=== PATIENT | female | born 1940 | race Caucasian/White ===

== ENCOUNTER 2025-01-23 14:29 | Inpatient (IN) | payer BC, MEDICARE ==
[~2025-01-23] VITALS: Ht 165.1 cm; Wt 39.0 kg
[2025-01-23 15:02] LABS: BASOPHILS % (AUTO) 0.2 % (0-1); EOSINOPHILS # (AUTO) 0.1 X10'3 (0-0.9); EOSINOPHILS % (AUTO) 2.3 % (0-6); HEMATOCRIT 33.6 % (35.0-45.0); HEMOGLOBIN 11.3 g/dl (12.0-16.0); LYMPHOCYTES # (AUTO) 1.6 X10'3 (1.1-4.8); LYMPHOCYTES % (AUTO) 40.2 % (21-51); MEAN CORPUSCULAR HEMOGLOBIN 31.2 PG (27.0-31.0); MEAN CORPUSCULAR HGB CONC 33.6 g/dL (33.0-36.5); MEAN CORPUSCULAR VOLUME 92.8 FL (78-98); MEAN PLATELET VOLUME 7.3 FL (7.4-10.4); MONOCYTES # (AUTO) 0.6 X10'3 (0-0.9); MONOCYTES % (AUTO) 14.4 % (2-12); NEUTROPHILS # (AUTO) 1.7 X10'3 (1.8-7.7); NEUTROPHILS % (AUTO) 42.9 % (42-75); PLATELET COUNT 299 X10'3 (140-440); RED BLOOD COUNT 3.62 X10'6 (4.20-5.60); RED CELL DISTRIBUTION WIDTH 12.4 % (11.5-14.5); WHITE BLOOD COUNT 3.9 X10'3 (4.5-11.0)
[2025-01-23 15:56] LABS: ALANINE AMINOTRANSFERASE 20 U/L (12-78); ALBUMIN 3.7 G/DL (3.4-5.0); ALKALINE PHOSPHATASE 33 IU/L (46-116); ANION GAP 10 (8-16); ASPARTATE AMINO TRANSFERASE 23 U/L (10-37); BILIRUBIN,TOTAL 0.9 MG/DL (0.1-1.0); BLOOD UREA NITROGEN 29 MG/DL (7-18); BUN/CREATININE RATIO 41.4 (10.0-20.0); CALCIUM 8.8 MG/DL (8.5-10.1); CHLORIDE 99 MMOL/L (99-107); GLUCOSE 89 MG/DL (70-104); LIPASE 11 U/L (16-77); POTASSIUM 4.5 MMOL/L (3.5-5.1); SODIUM 136 MMOL/L (135-145); TOTAL CARBON DIOXIDE 27.1 MMOL/L (24-32); TOTAL PROTEIN 7.4 G/DL (6.4-8.2); eCRCL 37 ML/MIN; eGFR 80 ML/MIN
--- NOTE | 2025-01-23 17:47 | Physician Documentation ---
History of Present Illness Chief Complaint: Abdominal Pain w/vomiting Stated Complaint: N/V Time Seen by MD: 17:37 Source: patient, family Mode of Arrival: POV HPI 85-year-old female history of COPD, remote history of bowel obstruction status post resection presenting with nausea vomiting diarrhea. She initially had diarrhea on Tuesday night she took Imodium and Tuesday her diarrhea improved but then she developed vomiting. She has been unable to hold down any food since then complaining of abdominal pain still Medication Reconciliation Allergies: Coded Allergies: No Known Allergies (Unverified , 01/23/25) Past Medical History Smoking Status: Current every day smoker Review of Systems All Other Systems at this time: Reviewed and Negative Constitutional: Denies: fever Physical Exam Vital Signs: Temperature: 97.6, Source: Axillary, Heart Rate: 91, Respiratory Rate: 16, BP: 141/79, Pulse Oximetry: 98, Weight: 39.000 Oxygen Flow Rate: 0 Physical Exam Uncomfortable appearing deconditioned Abdomen left lower quadrant tenderness no guarding no rebound Pulmonary clear to auscultation Neuro awake alert oriented Skin pink warm dry no rash decreased turgor Progress Results/Orders Reviewed/noted all lab results: Yes Results/Orders Orders - MARVIN TODD MD Urinalysis, Cult If Indicated (01/23/25 14:42) Hcg, Ur Ql (01/23/25 14:42) Ct Abdomen Pelvis (01/23/25 17:37) Completed Orders - MARVIN TODD MD Cbc/Diff (01/23/25 14:42) Vital Signs 01/23/25 01/23/25 14:37 14:49 Temp 97.6 Pulse 91 Resp 16 16 B/P (MAP) 141/79 Pulse Ox 98 O2 Flow Rate 0 Laboratory Tests Test 01/23/25 14:49 01/23/25 15:22 White Blood Count 3.9 L Red Blood Count 3.62 L Hemoglobin 11.3 L Hematocrit 33.6 L Mean Corpuscular Volume 92.8 Mean Corpuscular Hemoglobin 31.2 H Mean Corpuscular Hemoglobin Concent 33.6 Red Cell Distribution Width 12.4 Platelet Count 299 Mean Platelet Volume 7.3 L Neutrophils (%) (Auto) 42.9 Lymphocytes (%) (Auto) 40.2 Monocytes (%) (Auto) 14.4 H Eosinophils (%) (Auto) 2.3 Basophils (%) (Auto) 0.2 Neutrophils # (Auto) 1.7 L Lymphocytes # (Auto) 1.6 Monocytes # (Auto) 0.6 Eosinophils # (Auto) 0.1 Basophils # (Auto) 0.0 CBC Comment Chemistry Comments Sodium Level 136 Potassium Level 4.5 Chloride Level 99 Carbon Dioxide Level 27.1 Anion Gap 10 Blood Urea Nitrogen 29 H Creatinine 0.70 Estimated GFR/1.73 m2 80 BUN/Creatinine Ratio 41.4 H Glucose Level 89 Calcium Level 8.8 Total Bilirubin 0.9 Aspartate Amino Transf (AST/SGOT) 23 Alanine Aminotransferase (ALT/SGPT) 20 Alkaline Phosphatase 33 L Total Protein 7.4 Albumin 3.7 Globulin 3.7 Albumin/Globulin Ratio 1.0 L Lipase 11 L Medical Decision Making Additional Comments Bowel obstruction, volvulus, ischemic colitis Departure Impression: Primary Impression: Abdominal pain Qualified Codes: R10.32 - Left lower quadrant pain Additional Impression Text Signed out to night physician several days of diarrhea nausea vomiting abdominal pain follow up labs CT imaging Jahaira Lagunas MD: Assumed care of patient from Dr. Todd. Patient in with abdominal pain and vomiting. Previous history of obstruction and resection that is remote. Denies any other surgeries in her abdomen. CT scan shows small bowel obstruction. Patient was given pain medication along with Zofran in the ED. NG tube placed. Patient is stable on admission to the hospitalist team. Referrals: NO PRIMARY CARE PROVIDER (PCP) Signature Scribe Signature: No scribe Attestation: No scribe MARVIN TODD MD Jan 23, 2025 17:47 JAHAIRA LAGUNAS MD Jan 23, 2025 20:51
[2025-01-23] MEDS: ringers solution, lacted 1,000 ML IV ONE (18:01)
[2025-01-23] MEDS ORDERED: iohexol 300mg/ml 100ml inj. ONE (18:03)
[2025-01-23] MEDS: morphine 4 MG/ML inj SYRINge IV ONE (18:04)
--- NOTE | 2025-01-23 18:48 | RADIOLOGY REPORT ---
Exam: CT CT ABDOMEN PELVIS W/ IV CONTRAST History: abdominal pain COMPARISON: None Technique: Multidetector spiral CT of the abdomen and pelvis was performed from lung bases to pubic s ymphysis. Intravenous contrast was administered during this examination. Portal venous imaging was obtained. Axial, coronal and sagittal multiplanar reformats were performed by the technologist on a separate workstation. Radiation Dose : 1. Abdomen/Pelvis: CTDIvol 5.3 mGy, DLP 263 mGy*cm. CONTRAST: Type of contrast: Isovue Contrast injected: 100 ml Findings: Lung Bases: No acute or significant lung base finding. Normal heart size. No pleural or pericardial effusion. Liver: The liver is normal in size. No focal lesions. Normal hepatic vascular enhancement. Gallbladder and Biliary Tree: Unremarkable Spleen: Unremarkable Pancreas: The pancreas is normal in appearance without focal lesions or abnormal enhancement. Adrenal Glands: Unremarkable Kidneys: No hydronephrosis. Bladder: Markedly distended bladder Bowel: The stomach is grossly normal in appearance. Multiple abnormally dilated loops of small bowel are seen with probable transition point in the lower midline abdomen compatible with small-bowel obst ruction. The appendix is not visualized; however, no secondary findings of acute appendicitis identi fied. Ascites: Absent Lymphadenopathy: No mesenteric, retroperitoneal or periportal lymphadenopathy. Abdominal Wall and Mesentery: Unremarkable. Vasculature: The visualized abdominal aorta is normal in size and caliber. Abdominal and pelvic vess els demonstrate normal enhancement. Pelvic Organs: Unremarkable Musculoskeletal: No aggressive focal bony lesions, acute fractures or dislocation. Chronic compressio n deformity of the L1 vertebral body IMPRESSION: 1. Small-bowel obstruction with probable transition point in the lower midline abdomen. 2. Markedly distended bladder. Correlate for urinary retention Radiation optimization: All CT scans at this facility use at least one of these dose optimization bobo hniques: automated exposure control mA and/or kV adjustment per patient size (includes targeted exam s where dose is matched to clinical indication) or iterative reconstruction.
[2025-01-23] MEDS: ondansetron/PF 4mg/2ml inj IV ONE (19:25)
[2025-01-23] MEDS ORDERED: magnesium Cl slow-release 64mg tablet PO PRN (20:00)
[2025-01-23] MEDS ORDERED: magnesium sulf-water 4G/100mL 100 ML IV PRN (20:00)
[2025-01-23] MEDS ORDERED: HYDROmorphone inj. 0.5 MG/0.5 ML DISP.SYRIN IV PRN (20:00)
[2025-01-23] MEDS ORDERED: magnesium sulf-water 2g/50mL 50 ML IV PRN (20:00)
[2025-01-23] MEDS ORDERED: potassium Cl 20 mEq SR tablet PO PRN ×2 (20:00)
[2025-01-23] MEDS ORDERED: ondansetron/PF 4mg/2ml inj IV PRN (20:00)
[2025-01-23] MEDS: docusate sod 100mg capsule PO SCH (20:00)
[2025-01-23] MEDS ORDERED: acetaminophen 325mg tablet PO PRN (20:00)
[2025-01-23] MEDS ORDERED: mag hydrox/Alum hydrox/simeth 30ml oral suspension PO PRN (20:00)
[2025-01-23] MEDS: K and/or MAG REPLACEMENT MC SCH (20:00)
[2025-01-23] MEDS ORDERED: potassium Cl 40MEQ/1/2NS 520ml 520 ML IV PRN (20:00)
--- NOTE | 2025-01-23 20:07 | HISTORY AND PHYSICAL-Residence ---
History & Physical Providers to CC Resident Creating Document: WES CORREA RES ~ History of Present Illness Primary Medical Doctor: None Reason for Admit\Complaint: Nausea, vomiting, pain abdomen History of Present Illness 85-year-old female(very poor historian) with past medical history of COPD, hard hearing, remote history of bowel obstruction status post resection presented to the ER with abdominal pain, vomiting. She endorses that pain abdomen, 6-7/10, in lower abdomen, spasmodic for the past four days. She initially had multiple episodes of diarrhea on Tuesday night and she took Imodium. On Tuesday her diarrhea improved but then she developed vomiting for the past four days. She reports nausea, multiple episodes of vomiting, with a light green liquid, more than 8-10 episodes& without any hematemesis for the past four days. She has been unable to hold down any food since then she developed abdominal pain. She do reports back pain and shoulder pain and chest pain, non anginal, burning type retrosternal for the past 2 days. Denied shortness of breath, wheezing, palpitations, fever, cough, constipation, abdominal distention, pedal edema. Her last bowel movement is on 01/23/2025. Her next in kin is KajalBárbara Discussed code status with the patient and patient wants to be in full code. Allergies: Coded Allergies: No Known Allergies (Unverified , 01/23/25) Past Medical History Past Medical History COPD Past Surgical History Surgical History Comment Hysterectomy Family History Family History: Patient reports no known family medical history. Past Social History Social History Comment Smoking less than half a pack of cigarettes for 10 years She denied alcohol and drug intake Smoking: Cigarettes, Less than 1 pack/day Alcohol Use: None Drug Use: None Occupation: retired ROS All Other Systems: Reviewed and Negative ROS Reviewed in full and negative except positive pertinent in HPI Constitutional: Denies: fever Exam Vitals: Vital Signs Date Time Temp Pulse Resp B/P (MAP) Pulse Ox O2 Delivery O2 Flow Rate FiO2 01/23/25 18:04 16 01/23/25 14:37 97.6 91 141/79 98 0 General: General: Elderly female, alert and oriented x4, not in acute distress. Deconditioned, uncomfortable appearance. Head: Normocephalic with an atraumatic Eyes: Pupils- 3mm, reacting to light, conjunctiva- anicteric Nose and throat: No polyps, septum- normal, no mucosal ulcers Neck: Supple, no lymphadenopathy, no carotid bruit Respiratory: No use of accessory muscles of respiration, Bilateral normal vesiscular breath sounds heard. No wheeze, rhochi or creps Cardiovascular system: S1-S2 heard, rhythm regular, no gallop/murmur Gastrointestinal: Soft over the right side of abdomen. Firm in consistency over the left upper and lower quadrants. non distended, tenderness in the left lower quadrant, no organomegaly, bowel sounds - heard hyper active. No guarding, rigidity Extremities: no clubbing, no pedal edema, no deformities, peripheral pulses - 2+. Skin: warm and dry, no rash, no purpura,decreased turgor Neuro: No focal deficit, gross cranial nerve exam - normal Diagnostic Data Last Recorded Lab Results: 01/24/25 04401/24/25 044 Advance Care Planning Advanced Care planning: Add on additional 30 min Additional Plan Assessment and plan Small-bowel obstruction likely secondary to postop adhesions Vitals are stable Hemoglobin is 11.3, hematocrit is 36.6. Procalcitonin is elevated WBCs at 3.9, reduced and lactic acid is normal Elevated BUN, seems to be in dehydration Received 1 L of lactate in ER and we put the patient on 100 mL/hour normal saline. On ondansetron, metoclopramide p.r.n. for vomiting On pantoprazole 40 mg IV daily We are giving the Dilaudid for abdomen pain. Started on ceftriaxone and metronidazole. NG tube is placed and with light green vomitus Consulted Dr. Romero & we will appreciate the recommendation Acute urinary retention Bladder scan showed 600 mL Straight catheterization is ordered and more than 600 mL of the urine is drained We will monitor for urine output If not resolved we may consult the urologist. Mild normocytic normochromic anemia Continue to monitor H&H daily Code status: Full code DVT prophylaxis: SCDs Diet: NPO PT: Ordered Prognosis: Guarded Wes DOBBINS resident Date of Service: Jan 23, 2025 Billing Provider: LILY STEVEN MD Common Visit Codes: 09666-[id number] INP/OBS CARE (HIGH) Assessment/Plan Assessment Evaluated the patient with the help of residents. Discussed the case with them. Reviewed notes by Dr.Suragani GUTIERREZ. agree with his assessments and plans. I also reviewed the patient's records which included labs, radiology, notes from other providers. No additional points at this time WES CORREA, KESHAV Jan 23, 2025 20:07 LILY STEVEN MD Jan 24, 2025 11:29
[2025-01-23] MEDS ORDERED: metoclopramide 5 mg/ml inj IV PRN (20:10)
[2025-01-23] MEDS: HYDROmorphone/PF 0.2 MG/ML SYRINGE IV PRN (20:23)
[2025-01-23] MEDS: pantoprazole 40 MG vial IV SCH (20:31)
[2025-01-23] MEDS: normal saline 1000ml 1,000 ML IV SCH (20:31)
[2025-01-23 20:42] LABS: APTT 26 SECONDS (22-32); PROTHROMBIN TIME 10.3 SECONDS (9.0-12.0)
--- NOTE | 2025-01-23 21:14 | RADIOLOGY REPORT ---
EXAM: DI CHEST,SINGLE VIEW CLINICAL HISTORY: small bowel obstruction TECHNIQUE: Single AP view of the chest WID: COMPARISON: CT abdomen pelvis from same day FINDINGS: Lines and tubes: None Chest: The heart size and pulmonary vasculature is within normal limits. Calcified plaque projects over the aortic arch. No pleural effusion or pneumothorax. There is mixed right basilar opacity. The osseous structures are grossly intact. IMPRESSION: Small mixed right basilar opacity which could reflect atelectasis, scarring, or atypical infection.
[2025-01-24] VITALS (8 sets, daily range): BP systolic 76–117; BP diastolic 41–49; PULSE 72–105; RESP 15–24; TEMP 97–99.4; O2SAT 95–98
[2025-01-24 02:06] LABS: URINE HCG NEGATIVE (NEG)
[2025-01-24 02:07] LABS: BILIRUBIN,URINE NEGATIVE (Neg); CLARITY,URINE SLIGHTLY CLOUDY (Clear); COLOR,URINE YELLOW (Yellow); GLUCOSE, URINE NEGATIVE (Neg); KETONES,URINE 15 mg/dl (Neg); LEUKOCYTE ESTERASE ,URINE NEGATIVE (Neg); NITRITES, URINE NEGATIVE (Neg); OCCULT BLOOD,URINE NEGATIVE (Neg); PROTEIN,URINE NEGATIVE (Neg); UROBILINOGEN,URINE 0.2 E.U/dL (0.2-1.0)
[2025-01-24 02:10] LABS: UA COLLECTION TYPE STRAIGHT CATH
[2025-01-24 02:12] LABS: HYALINE CASTS 0-3 /LPF (NEGATIVE); MUCUS STRANDS FEW /LPF (Neg); SQUAMOUS EPITHELIAL CELL,UR NONE SEEN /LPF (FEW)
[2025-01-24 02:13] LABS: RBC,URINE 0-2 /HPF (0-2); WBC,URINE 0-4 /HPF (0-4)
[2025-01-24 02:14] LABS: AMORPHOUS URATES 1+; BACTERIA,URINE 1+ /HPF (Neg)
[2025-01-24] MEDS: metroNIDAZOLE-Flagyl 500mg/NS 100 ML IV SCH (03:09)
[2025-01-24] MEDS: CefTRIAXone/D5W-Rocephin 1gm 50 ML IV SCH (04:22)
[2025-01-24 04:50] LABS: BASOPHILS % (AUTO) 0.3 % (0-1); EOSINOPHILS # (AUTO) 0.1 X10'3 (0-0.9); EOSINOPHILS % (AUTO) 2.2 % (0-6); HEMATOCRIT 31.5 % (35.0-45.0); HEMOGLOBIN 10.6 g/dl (12.0-16.0); LYMPHOCYTES # (AUTO) 1.3 X10'3 (1.1-4.8); LYMPHOCYTES % (AUTO) 30.2 % (21-51); MEAN CORPUSCULAR HEMOGLOBIN 31.3 PG (27.0-31.0); MEAN CORPUSCULAR HGB CONC 33.6 g/dL (33.0-36.5); MEAN CORPUSCULAR VOLUME 93.3 FL (78-98); MEAN PLATELET VOLUME 6.4 FL (7.4-10.4); MONOCYTES # (AUTO) 0.6 X10'3 (0-0.9); MONOCYTES % (AUTO) 14.1 % (2-12); NEUTROPHILS # (AUTO) 2.3 X10'3 (1.8-7.7); NEUTROPHILS % (AUTO) 53.2 % (42-75); PLATELET COUNT 255 X10'3 (140-440); RED BLOOD COUNT 3.37 X10'6 (4.20-5.60); RED CELL DISTRIBUTION WIDTH 12.3 % (11.5-14.5); WHITE BLOOD COUNT 4.3 X10'3 (4.5-11.0)
[2025-01-24 05:10] LABS: ALANINE AMINOTRANSFERASE 20 U/L (12-78); ALBUMIN 3.1 G/DL (3.4-5.0); ALKALINE PHOSPHATASE 29 IU/L (46-116); ANION GAP 10 (8-16); ASPARTATE AMINO TRANSFERASE 23 U/L (10-37); BILIRUBIN,TOTAL 0.7 MG/DL (0.1-1.0); BLOOD UREA NITROGEN 20 MG/DL (7-18); BUN/CREATININE RATIO 32.3 (10.0-20.0); CALCIUM 8.5 MG/DL (8.5-10.1); CHLORIDE 104 MMOL/L (99-107); CREATININE 0.62 MG/DL (0.40-0.90); GLUCOSE 80 MG/DL (70-104); MAGNESIUM 1.6 MG/DL (1.5-2.4); POTASSIUM 4.8 MMOL/L (3.5-5.1); SODIUM 140 MMOL/L (135-145); TOTAL CARBON DIOXIDE 25.8 MMOL/L (24-32); TOTAL PROTEIN 6.3 G/DL (6.4-8.2); eCRCL 42 ML/MIN; eGFR > 90 ML/MIN
[2025-01-24] MEDS: normal saline 500ml IV soln 500 ML IV STA (09:59)
--- NOTE | 2025-01-24 18:31 | CARDIOLOGY REPORT ---
APPROVED REPORT EXAM: Limited 2D, Doppler, and color-flow Echocardiogram. Patient Location: [facility] Blood Pressure: 117/49 mmHg Heart Rate: 86 bpm Indications Pre-OP Assessment COPD NO [employer] NO Previous ECHO 2D Dimensions LA Diam2.2 cm IVSd 0.8 (0.7-1.1cm) LVDd 3.3 cm PWd 0.8 (0.7-1.1cm) IVSs 1.3 (0.8-1.2cm) LVDs 2.1 (2.5-4.0cm) PWs 1.1 (0.8-1.2cm) LVOT Diameter 2.04 (1.8-2.4cm) LVEF(%) 65.7 (>50%) FS (%) 35.1 % SV 28.7 ml CO 2.8 L/min M-Mode Dimensions Left Atrium(MM) 3.57 (2.5-4.0cm) Aortic Root 2.36 (2.2-3.7cm) Aortic Cusp Exc 1.13 (1.5-2.0cm) MV EPSS 0.4 (<0.5cm) Tricuspid Valve TR P. Velocity 295 cm/s RAP ESTIMATE 10 mmHg TR Peak Gr. 35 mmHg RVSP 45 mmHg LEFT VENTRICLE Normal LV size and wall thickness. Overall systolic function is normal. LVEF is 65-70%. RIGHT VENTRICLE RV not fully evaluated due to early termination of exam. ATRIA The left atrium size is normal. AORTIC VALVE Trileaflet AV appears mildly sclerotic with insufficiency. AV not fully evaluated due to early termin ation of exam. MITRAL VALVE Mitral valve leaflets are thickened with mild annular calcification. No sstenosis. Trace regurgitatio n. TRICUSPID VALVE Tricuspid valve is grossly normal in structure with mild regurgitation. PULMONIC VALVE Pulmonic valve is grossly normal in structure with physiologic insufficiency. GREAT VESSELS The aortic root is normal in size. IVC not fully evaluated due to early termination of exam. PERICARDIUM Normal pericardium. No effusion. Other Information Study Quality: Fair. Patient unable to tolerate exam and terminated echo early. Conclusion Normal LV size and wall thickness. Overall systolic function is normal. LVEF is 65-70%. RV not fully evaluated due to early termination of exam. The left atrium size is normal. Trileaflet AV appears mildly sclerotic with insufficiency. AV not fully evaluated due to early termi nation of exam. Mitral valve leaflets are thickened with mild annular calcification. No sstenosis. Trace regurgitat ion. Tricuspid valve is grossly normal in structure with mild regurgitation. Normal pericardium. No effusion.
--- NOTE | 2025-01-24 18:59 | PROGRESS NOTE- Residence ---
Progress Note - Resident Providers to CC Resident Creating Document: YEYO SCHULTZ, KESHAV ~ Antibiotic Timeout Antibiotic Ordered?: Yes Subjective Patient was seen and examined at the bedside. She appears very frail. She is on NG tube and has a greenish vomitus coming through the tube. Surgeon was paged who ordered CT of the abdomen with overnight contrast. Objective Vital Signs Date Time Temp Pulse Resp B/P (MAP) Pulse Ox O2 Delivery O2 Flow Rate FiO2 01/24/25 17:02 16 01/24/25 10:00 97.3 72 84/47 (59) 97 Room Air 01/24/25 08:00 0.0 Result Diagram: 01/24/25 0441 01/24/25 0441 General: Elderly frail thin-appearing female, alert and oriented x4, not in acute distress. Deconditioned, in mild acute distress Head: Normocephalic with an atraumatic Eyes: Pupils- 3mm, reacting to light, conjunctiva- anicteric Nose and throat: No polyps, septum- normal, no mucosal ulcers Neck: Supple, no lymphadenopathy, no carotid bruit Respiratory: No use of accessory muscles of respiration, Bilateral normal vesiscular breath sounds heard. No wheeze, rhochi or creps Cardiovascular system: S1-S2 heard, rhythm regular, no gallop/murmur Gastrointestinal: Soft over the right side of abdomen. Firm in consistency over the left upper and lower quadrants. non distended, tenderness in the left lower quadrant, no organomegaly, bowel sounds - heard hyper active. No guarding, rigidity Extremities: no clubbing, no pedal edema, no deformities, peripheral pulses - 2+. Skin: warm and dry, no rash, no purpura,decreased turgor Neuro: No focal deficit, gross cranial nerve exam - normal Coagulation Studies Laboratory Tests Test 01/23/25 20:20 Prothrombin Time 10.3 SECONDS (9.0-12.0) INR International Normalized Ratio 1.0 INR Activated Partial Thromboplast Time 26 SECONDS (22-32) Coagulation Comments Assessment Assessment 85-year-old female(very poor historian) with past medical history of COPD, hard hearing, remote history of bowel obstruction status post resection presented to the ER with abdominal pain, vomiting. She endorses that pain abdomen, 6-7/10, in lower abdomen, spasmodic for the past four days. She initially had multiple episodes of diarrhea on Tuesday night and she took Imodium. On Tuesday her diarrhea improved but then she developed vomiting for the past four days. She reports nausea, multiple episodes of vomiting, with a light green liquid, more than 8-10 episodes& without any hematemesis for the past four days. She has been unable to hold down any food since then she developed abdominal pain. She do reports back pain and shoulder pain and chest pain, non anginal, burning type retrosternal for the past 2 days. Denied shortness of breath, wheezing, palpitations, fever, cough, constipation, abdominal distention, pedal edema. Her last bowel movement is on 01/23/2025. Her next in kin is Kajal Bárbara Discussed code status with the patient and patient wants to be in full code. Plan Plan Small-bowel obstruction likely secondary to postop adhesions Vitals are stable Hemoglobin is 11.3, hematocrit is 36.6. Procalcitonin is elevated WBCs at 3.9, reduced and lactic acid is normal Elevated BUN, seems to be in dehydration Received 1 L of lactate in ER and we put the patient on 100 mL/hour normal saline. On ondansetron, metoclopramide p.r.n. for vomiting On pantoprazole 40 mg IV daily We are giving the Dilaudid for abdomen pain. Started on ceftriaxone and metronidazole. NG tube is placed and with light green vomitus Consulted Dr. Romero & we will appreciate the recommendation Acute urinary retention Bladder scan showed 600 mL Straight catheterization is ordered and more than 600 mL of the urine is drained We will monitor for urine output If not resolved we may consult the urologist. Mild normocytic normochromic anemia Continue to monitor H&H daily Code status: Full code DVT prophylaxis: SCDs Diet: NPO PT: Ordered Prognosis: Guarded Disposition: Pending CT abdomen with overnight contrast. Awaiting surgeon recommendations. Yeyo Mortensen IM resident Date of Service: Jan 24, 2025 Billing Provider: LIEN ECHEVARRIA MD Common Visit Codes: [id number] INP/OBS CARE(HIGH) YEYO SCHULTZ, RES Jan 24, 2025 18:59 LIEN ECHEVARRIA MD Feb 05, 2025 17:23
[2025-01-24] MEDS: normal saline 500ml IV soln 500 ML IV ONE ×2 (20:13→23:03)
[2025-01-24] MEDS: diatr meglu/diatrizoate 30ml oral sol.-(3 dose) bottle PO SCH (21:30)
[2025-01-24] MEDS: Melatonin 3mg tablet PO ONE (21:30)
[2025-01-25] VITALS (11 sets, daily range): BP systolic 83–112; BP diastolic 36–70; PULSE 42–107; RESP 12–18; TEMP 97.8–98.5; O2SAT 91–97
[2025-01-25] MEDS: normal saline 1000ml 1,000 ML IV ONE (00:45)
[2025-01-25] MEDS ORDERED: LANS30CA56 PO (00:54)
[2025-01-25] MEDS ORDERED: TIOT4MIS3 INH (00:54)
[2025-01-25] MEDS: ipratropium/albuterol 3ml nebule NEB PRN (01:27)
[2025-01-25 09:45] LABS: BASOPHILS % (AUTO) 0.2 % (0-1); EOSINOPHILS % (AUTO) 0.5 % (0-6); HEMATOCRIT 27.7 % (35.0-45.0); HEMOGLOBIN 9.3 g/dl (12.0-16.0); LYMPHOCYTES # (AUTO) 1.7 X10'3 (1.1-4.8); LYMPHOCYTES % (AUTO) 22.7 % (21-51); MEAN CORPUSCULAR HEMOGLOBIN 31.5 PG (27.0-31.0); MEAN CORPUSCULAR HGB CONC 33.5 g/dL (33.0-36.5); MEAN PLATELET VOLUME 6.9 FL (7.4-10.4); MONOCYTES # (AUTO) 0.8 X10'3 (0-0.9); MONOCYTES % (AUTO) 10.9 % (2-12); NEUTROPHILS % (AUTO) 65.7 % (42-75); PLATELET COUNT 251 X10'3 (140-440); RED BLOOD COUNT 2.95 X10'6 (4.20-5.60); RED CELL DISTRIBUTION WIDTH 12.4 % (11.5-14.5); WHITE BLOOD COUNT 7.7 X10'3 (4.5-11.0)
[2025-01-25] MEDS: dextrose 5%-lactated ringers 1,000 ML IV SCH (09:51)
[2025-01-25 10:08] LABS: ALANINE AMINOTRANSFERASE 21 U/L (12-78); ALBUMIN 2.7 G/DL (3.4-5.0); ALKALINE PHOSPHATASE 26 IU/L (46-116); ANION GAP 22 (8-16); ASPARTATE AMINO TRANSFERASE 22 U/L (10-37); BILIRUBIN,TOTAL 0.3 MG/DL (0.1-1.0); BLOOD UREA NITROGEN 9 MG/DL (7-18); BUN/CREATININE RATIO 16.4 (10.0-20.0); CALCIUM 7.7 MG/DL (8.5-10.1); CHLORIDE 108 MMOL/L (99-107); CREATININE 0.55 MG/DL (0.40-0.90); GLUCOSE 64 MG/DL (70-104); MAGNESIUM 1.5 MG/DL (1.5-2.4); POTASSIUM 3.9 MMOL/L (3.5-5.1); SODIUM 145 MMOL/L (135-145); TOTAL CARBON DIOXIDE 15.3 MMOL/L (24-32); TOTAL PROTEIN 5.5 G/DL (6.4-8.2); eCRCL 48 ML/MIN; eGFR > 90 ML/MIN
[2025-01-25] MEDS ORDERED: DEXTROSE 15 GM of carb/4 tabs (each vial/BOTTLE has 4 tablets) PO PRN ×2 (11:15)
[2025-01-25] MEDS ORDERED: dextrose 50%-water 50ml dispensing syringe IV PRN ×2 (11:15)
[2025-01-25] MEDS ORDERED: glucagon, human recombinant 1mg kit SUBCUT PRN (11:15)
[2025-01-25 12:21] LABS: BANDS% (MANUAL) 1 % (0-10); BASOPHILS % (MANUAL) 0 % (0-1); EOSINOPHILS % (MANUAL) 0 % (0-6); LARGE PLATELETS FEW; LYMPHOCYTES % (MANUAL) 14 % (21-51); METAMYLEOCYTES% (MANUAL) 1 % (0-0); MONOCYTES % (MANUAL) 5 % (2-12); NEUTROPHILS % (MANUAL) 79 % (42-75); PLATELET ESTIMATE NORMAL; SMUDGE CELLS 1+; TOTAL CELLS COUNTED 100
--- NOTE | 2025-01-25 15:50 | PROGRESS NOTE- Residence ---
Progress Note - Resident Providers to CC Resident Creating Document: SCHULTZYEYO MUNOZ, RES ~ Antibiotic Timeout Antibiotic Ordered?: Yes Subjective Patient was seen and examined at the bedside. She appears very frail. She is on NG tube and has a greenish vomitus coming through the tube. Surgeon was paged who ordered CT of the abdomen with overnight contrast. Objective Vital Signs Date Time Temp Pulse Resp B/P (MAP) Pulse Ox O2 Delivery O2 Flow Rate FiO2 01/25/25 12:12 101 16 94 Room Air* 0 21 01/25/25 05:00 97.8 88/60 (69) Result Diagram: 01/25/25 0901 01/25/25 0901 General: Elderly frail thin-appearing female, alert and oriented x4, not in acute distress. Deconditioned, in mild acute distress Head: Normocephalic with an atraumatic Eyes: Pupils- 3mm, reacting to light, conjunctiva- anicteric Nose and throat: No polyps, septum- normal, no mucosal ulcers Neck: Supple, no lymphadenopathy, no carotid bruit Respiratory: No use of accessory muscles of respiration, Bilateral normal vesiscular breath sounds heard. No wheeze, rhochi or creps Cardiovascular system: S1-S2 heard, rhythm regular, no gallop/murmur Gastrointestinal: Soft over the right side of abdomen. Firm in consistency over the left upper and lower quadrants. non distended, tenderness in the left lower quadrant, no organomegaly, bowel sounds - heard hyper active. No guarding, rigidity Extremities: no clubbing, no pedal edema, no deformities, peripheral pulses - 2+. Skin: warm and dry, no rash, no purpura,decreased turgor Neuro: No focal deficit, gross cranial nerve exam - normal Coagulation Studies Laboratory Tests Test 01/23/25 20:20 Prothrombin Time 10.3 SECONDS (9.0-12.0) INR International Normalized Ratio 1.0 INR Activated Partial Thromboplast Time 26 SECONDS (22-32) Coagulation Comments Assessment Assessment 85-year-old female(very poor historian) with past medical history of COPD, hard hearing, remote history of bowel obstruction status post resection presented to the ER with abdominal pain, vomiting. She endorses that pain abdomen, 6-7/10, in lower abdomen, spasmodic for the past four days. She initially had multiple episodes of diarrhea on Saturday night and she took Imodium. On Tuesday her diarrhea improved but then she developed vomiting for the past four days. She reports nausea, multiple episodes of vomiting, with a light green liquid, more than 8-10 episodes& without any hematemesis for the past four days. She has been unable to hold down any food since then she developed abdominal pain. She do reports back pain and shoulder pain and chest pain, non anginal, burning type retrosternal for the past 2 days. Denied shortness of breath, wheezing, palpitations, fever, cough, constipation, abdominal distention, pedal edema. Her last bowel movement is on 01/23/2025. Her next in kin is Kajal Bárbara Discussed code status with the patient and patient wants to be in full code. Plan Plan Small-bowel obstruction likely secondary to postop adhesions Vitals are stable Hemoglobin is 11.3, hematocrit is 36.6. Procalcitonin is elevated WBCs at 3.9, reduced and lactic acid is normal Elevated BUN, seems to be in dehydration Received 1 L of lactate in ER and we put the patient on 100 mL/hour normal saline. On ondansetron, metoclopramide p.r.n. for vomiting On pantoprazole 40 mg IV daily We are giving the Dilaudid for abdomen pain. Started on ceftriaxone and metronidazole. NG tube is placed and with light green vomitus Consulted Dr. Romero & we will appreciate the recommendation Acute urinary retention Bladder scan showed 600 mL Straight catheterization is ordered and more than 600 mL of the urine is drained We will monitor for urine output If not resolved we may consult the urologist. Mild normocytic normochromic anemia Continue to monitor H&H daily Code status: Full code DVT prophylaxis: SCDs Diet: NPO PT: Ordered Prognosis: Guarded Disposition: Pending CT abdomen with overnight contrast. Awaiting surgeon recommendations. Yeyo Mortensen IM resident Date of Service: Jan 25, 2025 Billing Provider: LIEN ECHEVARRIA MD, DEEPIKA BANDI, RES Jan 25, 2025 15:50
[2025-01-25] MEDS: sodium bicarbonate 1meq/ml inj 150 ML in dextrose 5%-water 1,000 ML IV SCH (16:36)
--- NOTE | 2025-01-25 16:44 | RADIOLOGY REPORT ---
Indication: / sbo Technique: CT axial images of the abdomen and pelvis are obtained without contrast. Coronal and sagit stepan reformats were obtained. Radiation Dose Information: CTDI volume is 5. mGy. Dose-length product is 258 mGy*cm Comparison: CT CT ABDOMEN PELVIS W/ IV CONTRAST on DOS: 01/23/25 FINDINGS: Examination degraded by motion. Moderate right and small left pleural effusions. Right basilar consolidation / atelectasis. Adrenal glands suboptimally characterize. Spleen, pancreas and liver unremarkable in shape. Gallblad zachary distention. Vicarious excretion contrast from the gallbladder. Cholelithiasis. No hydronephrosis / nephrolithiasis. Nasogastric tube projecting towards stomach. Stomach is relatively nondistended. There is moderate d istention of the small bowel loops. Contrast is present within the large bowel extending to the sple vickey flexure of the colon. Rectal/anal wall thickening. Abdominal aortic atherosclerotic disease. Bladder is severely distended. Small amount of ascites flui d. Mesenteric edema. No inguinal lymphadenopathy. Soft tissue edema / anasarca. The osseous structures are stable. Moderate thoracolumbar degenerative disc disease. There is limited interpretation of the abdomen and pelvis without administration of intravenous contr ast. IMPRESSION: 1. Moderate distention small bowel loops , overall less pronounced than on prior examination. Contra st appears to reach the splenic flexure of the colon. These findings could represent partial small july wel obstruction, overall improved since previous examination. 2. Interval development of mesenteric edema and small amount of ascites fluid. 3. Moderate right and small left pleural effusions. 4. Cholelithiasis. 5. Vicarious excretion contrast from the gallbladder suggesting renal dysfunction. 6. Severe bladder distention. 7. Rectal/anal wall thickening. Recommend GI consultation to evaluate. 8. Other findings as described.
--- NOTE | 2025-01-25 19:29 | PROGRESS NOTE ---
Progress Note ID Providers to CC ~ Progress Note Progress Note: denies pain-ct improving MARYELLEN STEINER MD Jan 25, 2025 19:28
[2025-01-25] MEDS: LidoCAINE 2% Topical Jelly 11mL syringe (UROJET) TOP ONE (19:35)
--- NOTE | 2025-01-25 19:49 | PROGRESS NOTE- Residence ---
Progress Note - Resident Providers to CC Resident Creating Document: SCHULTZYEYO MUNOZ, RES ~ Antibiotic Timeout Antibiotic Ordered?: Yes Subjective Patient was seen and examined at the bedside. Had a conversation with daughter. Explained her about the possibility of surgery versus medical management. Daughter mentions that she has been frail since very long in his lived in [place] might be exposed to some parasites. Bowel sounds present. She appears very frail. She is on NG tube and has a greenish vomitus coming through the tube. CT abdomen with rectal contrast shows partial small-bowel obstruction. Started on bicarb drip. Change fluids from bicarb drip to D5 if bicarb greater than 21. Follow up with BNP. NPO today, reassess tomorrow if she will be able to tolerate clear liquids Objective Vital Signs Date Time Temp Pulse Resp B/P (MAP) Pulse Ox O2 Delivery O2 Flow Rate FiO2 01/25/25 12:12 101 16 94 Room Air* 0 21 01/25/25 05:00 97.8 88/60 (69) Result Diagram: 01/25/25 0901 01/25/25 0901 General: Elderly frail thin-appearing female, alert and oriented x4, not in acute distress. Deconditioned, in mild acute distress Head: Normocephalic with an atraumatic Eyes: Pupils- 3mm, reacting to light, conjunctiva- anicteric Nose and throat: No polyps, septum- normal, no mucosal ulcers Neck: Supple, no lymphadenopathy, no carotid bruit Respiratory: No use of accessory muscles of respiration, Bilateral normal vesiscular breath sounds heard. No wheeze, rhochi or creps Cardiovascular system: S1-S2 heard, rhythm regular, no gallop/murmur Gastrointestinal: Soft over the right side of abdomen. Firm in consistency over the left upper and lower quadrants. non distended, tenderness in the left lower quadrant, no organomegaly, bowel sounds - heard hyper active. No guarding, rigidity Extremities: no clubbing, no pedal edema, no deformities, peripheral pulses - 2+. Skin: warm and dry, no rash, no purpura,decreased turgor Neuro: No focal deficit, gross cranial nerve exam - normal Coagulation Studies Laboratory Tests Test 01/23/25 20:20 Prothrombin Time 10.3 SECONDS (9.0-12.0) INR International Normalized Ratio 1.0 INR Activated Partial Thromboplast Time 26 SECONDS (22-32) Coagulation Comments Assessment Assessment 85-year-old female(very poor historian) with past medical history of COPD, hard hearing, remote history of bowel obstruction status post resection presented to the ER with abdominal pain, vomiting. She endorses that pain abdomen, 6-7/10, in lower abdomen, spasmodic for the past four days. She initially had multiple episodes of diarrhea on Tuesday night and she took Imodium. On Tuesday her diarrhea improved but then she developed vomiting for the past four days. She reports nausea, multiple episodes of vomiting, with a light green liquid, more than 8-10 episodes& without any hematemesis for the past four days. She has been unable to hold down any food since then she developed abdominal pain. She do reports back pain and shoulder pain and chest pain, non anginal, burning type retrosternal for the past 2 days. Denied shortness of breath, wheezing, palpitations, fever, cough, constipation, abdominal distention, pedal edema. Her last bowel movement is on 01/23/2025. Her next in kin is Bárbara Rdz Discussed code status with the patient and patient wants to be in full code. Plan Plan Partial Small-bowel obstruction likely secondary to postop adhesions, improving Vitals are stable Hemoglobin is 11.3, hematocrit is 36.6. Procalcitonin is elevated WBCs at 3.9, reduced and lactic acid is normal Elevated BUN, seems to be in dehydration Received 1 L of lactate in ER and we put the patient on 100 mL/hour normal saline. On ondansetron, metoclopramide p.r.n. for vomiting On pantoprazole 40 mg IV daily We are giving the Dilaudid for abdomen pain. Started on ceftriaxone and metronidazole. NG tube is placed and with light green vomitus Trial of clear liquid diet once there is no output from NG tube. Acute urinary retention Bladder scan showed 600 mL Straight catheterization is ordered and more than 600 mL of the urine is drained We will monitor for urine output If not resolved we may consult the urologist. 01/25/2025: Placed Vega catheter Mild normocytic normochromic anemia Continue to monitor H&H daily Code status: Full code DVT prophylaxis: SCDs Diet: NPO PT: Ordered Prognosis: Guarded Disposition: Continue care in ortho floor. Start trial of oral feeds if patient improves tomorrow. Yeyo Mortensen resident Date of Service: Jan 25, 2025 Billing Provider: LIEN ECHEVARRIA MD Common Visit Codes: [id number] INP/OBS CARE(HIGH) YEYO SCHULTZ, RES Jan 25, 2025 19:49 LIEN ECHEVARRIA MD Feb 05, 2025 17:23
[2025-01-26 06:00] VITALS: BP 100/70; PULSE 104; RESP 14; TEMP 98.4; O2SAT 92
[2025-01-26 10:00] VITALS: BP 116/60; PULSE 107; RESP 18; TEMP 98.3; O2SAT 91
[2025-01-26] MEDS: magnesium hydroxide 30ml (MOM) UD suspension PO PRN (10:39)
[2025-01-26] MEDS: mineral oil 133ml enema RC STA (11:05)
--- NOTE | 2025-01-26 11:26 | PROGRESS NOTE ---
Progress Note ID Providers to CC ~ Progress Note Progress Note: call if needed MARYELLEN STEINER MD Jan 26, 2025 11:26
[2025-01-26 18:00] VITALS: BP 117/67; PULSE 103; RESP 18; O2SAT 93
--- NOTE | 2025-01-26 19:18 | PROGRESS NOTE- Residence ---
Progress Note - Resident Providers to CC Resident Creating Document: VIRIDIANA GILL, RES ~ Antibiotic Timeout Antibiotic Ordered?: Yes Subjective The patient was seen and examined at bedside today. This morning, the patient refused all labs and other treatment. Spoke with her daughter, Bárbara [phone]. She reported that the patient does not want any kind of pain and feels that she is probably not a candidate for surgery. The daughter and the patient agree for enema and clear liquid diet. Confirmed with Dr. Romero and started the patient on mineral oil enema and clear liquid diet. Objective Vital Signs Date Time Temp Pulse Resp B/P (MAP) Pulse Ox O2 Delivery O2 Flow Rate FiO2 01/26/25 10:00 98.3 107 18 116/60 (78) 91 Room Air 01/25/25 20:39 0 21 Result Diagram: 01/25/2590001/25/25 09 General: Elderly frail thin-appearing female, alert and oriented x4, not in acute distress. Deconditioned, in mild acute distress Head: Normocephalic with an atraumatic Eyes: Pupils- 3mm, reacting to light, conjunctiva- anicteric Nose and throat: No polyps, septum- normal, no mucosal ulcers Neck: Supple, no lymphadenopathy, no carotid bruit Respiratory: No use of accessory muscles of respiration, Bilateral normal vesiscular breath sounds heard. No wheeze, rhochi or creps Cardiovascular system: S1-S2 heard, rhythm regular, no gallop/murmur Gastrointestinal: Mild tenderness over the diffuse abdomen, bowel sounds heard Extremities: no clubbing, no pedal edema, no deformities, peripheral pulses - 2+. Skin: warm and dry, no rash, no purpura,decreased turgor Neuro: No focal deficit, gross cranial nerve exam - normal Coagulation Studies Laboratory Tests Test 01/23/25 20:20 Prothrombin Time 10.3 SECONDS (9.0-12.0) INR International Normalized Ratio 1.0 INR Activated Partial Thromboplast Time 26 SECONDS (22-32) Coagulation Comments Plan Plan Partial Small-bowel obstruction likely secondary to postop adhesions, improving Patient refused all labs today. Bowel sounds present. Confirmed with Dr. Romero and started the patient on mineral oil enema and clear liquid diet. We will continue to monitor. Continue IV ceftriaxone and metronidazole. Anion gap metabolic acidosis likely secondary to lactic acid Anion gap 22, bicarb 15.3. Patient not allowing for any labs. Lactic acid to be checked and the patient should continue IV fluids. Acute urinary retention Continue Vega's catheterization. Mild normocytic normochromic anemia Continue to monitor H&H daily. Code status: Full code DVT prophylaxis: SCDs Diet: Clear liquids PT: Ordered Prognosis: Guarded Disposition: Continue care in ortho floor. Mineral oil enema and clear liquid diet today. Labs tomorrow. Viridiana Gill MD Internal Medicine Resident, PGY-1 Date of Service: Jan 26, 2025 Billing Provider: LIEN ECHEVARRIA MD Common Visit Codes: [id number] INP/OBS CARE(HIGH) VIRIDIANA GILL, RES Jan 26, 2025 19:18 LIEN ECHEVARRIA MD Feb 05, 2025 17:23
[2025-01-26 20:00] VITALS: RESP 18; O2SAT 93
[2025-01-26 20:43] VITALS: PULSE 107; RESP 18; O2SAT 95
[2025-01-26 22:00] VITALS: BP 122/60; PULSE 107; RESP 22; TEMP 98; O2SAT 90
[2025-01-26] MEDS: Melatonin 3mg tablet PO PRN (22:23)
[2025-01-27] VITALS (8 sets, daily range): BP systolic 114–120; BP diastolic 48–78; PULSE 99–128; RESP 14–20; TEMP 97.7–98.6; O2SAT 91–97
[2025-01-27] MEDS: normal saline 1000ml 1,000 ML IV SCH (07:53)
[2025-01-27 12:26] LABS: BASOPHILS # (AUTO) 0.1 X10'3 (0-0.2); BASOPHILS % (AUTO) 0.8 % (0-1); EOSINOPHILS # (AUTO) 0.1 X10'3 (0-0.9); EOSINOPHILS % (AUTO) 1.2 % (0-6); HEMATOCRIT 33.8 % (35.0-45.0); HEMOGLOBIN 11.7 g/dl (12.0-16.0); LYMPHOCYTES # (AUTO) 1.4 X10'3 (1.1-4.8); LYMPHOCYTES % (AUTO) 19.5 % (21-51); MEAN CORPUSCULAR HEMOGLOBIN 31.5 PG (27.0-31.0); MEAN CORPUSCULAR HGB CONC 34.8 g/dL (33.0-36.5); MEAN CORPUSCULAR VOLUME 90.5 FL (78-98); MEAN PLATELET VOLUME 6.3 FL (7.4-10.4); MONOCYTES # (AUTO) 0.8 X10'3 (0-0.9); MONOCYTES % (AUTO) 10.8 % (2-12); NEUTROPHILS # (AUTO) 4.8 X10'3 (1.8-7.7); NEUTROPHILS % (AUTO) 67.7 % (42-75); PLATELET COUNT 296 X10'3 (140-440); RED BLOOD COUNT 3.73 X10'6 (4.20-5.60); RED CELL DISTRIBUTION WIDTH 11.8 % (11.5-14.5); WHITE BLOOD COUNT 7.1 X10'3 (4.5-11.0)
--- NOTE | 2025-01-27 12:26 | PROGRESS NOTE- Residence ---
Progress Note - Resident Providers to CC Resident Creating Document: YEYO SCHULTZ, RES ~ Antibiotic Timeout Antibiotic Ordered?: Yes Subjective The patient was seen and examined at bedside today. Patient is agreeable for labs today. Labs show a critical low potassium levels and high bicarbonate levels. Switched fluids from bicarbonate drip to D5 water. NG tube is clamped. Started trial of clear liquid diet, patient is tolerating the diet well. Patient mentions that she is passing gas and has good bowel sounds. [employer] Sharona has recommended PPN for the patient. We will discuss with surgeon and make changes tomorrow if necessary. Started on Reglan IV 10 mg q.6 scheduled. Objective Vital Signs Date Time Temp Pulse Resp B/P (MAP) Pulse Ox O2 Delivery O2 Flow Rate FiO2 01/27/25 12:09 99 16 96 Room Air* 0 21 01/27/25 10:00 98.6 118/48 (71) Result Diagram: 01/25/25 0901/25/25 0901 General: Elderly frail thin-appearing female, alert and oriented x4, not in acute distress. Deconditioned, in mild acute distress Head: Normocephalic with an atraumatic Eyes: Pupils- 3mm, reacting to light, conjunctiva- anicteric Nose and throat: No polyps, septum- normal, no mucosal ulcers Neck: Supple, no lymphadenopathy, no carotid bruit Respiratory: No use of accessory muscles of respiration, Bilateral normal vesiscular breath sounds heard. No wheeze, rhochi or creps Cardiovascular system: S1-S2 heard, rhythm regular, no gallop/murmur Gastrointestinal: Soft over the right side of abdomen. Firm in consistency over the left upper and lower quadrants. non distended, tenderness in the left lower quadrant, no organomegaly, bowel sounds - heard hyper active. No guarding, rigidity Extremities: no clubbing, no pedal edema, no deformities, peripheral pulses - 2+. Skin: warm and dry, no rash, no purpura,decreased turgor Neuro: No focal deficit, gross cranial nerve exam - normal Coagulation Studies Laboratory Tests Test 01/23/25 20:20 Prothrombin Time 10.3 SECONDS (9.0-12.0) INR International Normalized Ratio 1.0 INR Activated Partial Thromboplast Time 26 SECONDS (22-32) Coagulation Comments Assessment Assessment 85-year-old female(very poor historian) with past medical history of COPD, hard hearing, remote history of bowel obstruction status post resection presented to the ER with abdominal pain, vomiting. She endorses that pain abdomen, 6-7/10, in lower abdomen, spasmodic for the past four days. She initially had multiple episodes of diarrhea on Tuesday night and she took Imodium. On Tuesday her diarrhea improved but then she developed vomiting for the past four days. She reports nausea, multiple episodes of vomiting, with a light green liquid, more than 8-10 episodes& without any hematemesis for the past four days. She has been unable to hold down any food since then she developed abdominal pain. She do reports back pain and shoulder pain and chest pain, non anginal, burning type retrosternal for the past 2 days. Denied shortness of breath, wheezing, palpitations, fever, cough, constipation, abdominal distention, pedal edema. Her last bowel movement is on 01/23/2025. Her next in kin is Bárbara Rdz Discussed code status with the patient and patient wants to be in full code. Plan Plan Partial Small-bowel obstruction likely secondary to postop adhesions, improving Bowel sounds present. CT with contrast shows partial small-bowel obstruction. Patient is passing flatus. NG-tube clamped Confirmed with Dr. Romero and started the patient on mineral oil enema and clear liquid diet. We will continue to monitor. Continue IV ceftriaxone and metronidazole. Metabolic alkalosis Bicarbonate greater than 40 Changed fluids from bicarbonate to D5 water Acute urinary retention Continue Vega's catheterization. Patient needs outpatient urology follow up Mild normocytic normochromic anemia Severe protein calorie malnutrition Continue to monitor H&H daily. Ensure t.i.d. Code status: Full code DVT prophylaxis: SCDs Diet: Clear liquids PT: Ordered Prognosis: Guarded Disposition: Continue care in ortho floor. Mineral oil enema and clear liquid diet today. Recommendations per surgeon Yeyo Mortensen MD Internal Medicine Resident, PGY-1 Patient is seen and examined with resident at bedside Date of Service: Jan 27, 2025 Billing Provider: LYUDMILA HUGHES MD Common Visit Codes: [id number] INP/OBS CARE(HIGH) YEYO SCHULTZ, RES Jan 27, 2025 12:26 LYUDMILA HUGHES MD Jan 29, 2025 08:37
[2025-01-27 12:39] LABS: ALANINE AMINOTRANSFERASE 35 U/L (12-78); ALBUMIN 2.9 G/DL (3.4-5.0); ALBUMIN/GLOBULIN RATIO 0.8 (1.1-1.5); ALKALINE PHOSPHATASE 36 IU/L (46-116); ANION GAP 3 (8-16); ASPARTATE AMINO TRANSFERASE 56 U/L (10-37); BILIRUBIN,TOTAL 0.6 MG/DL (0.1-1.0); BLOOD UREA NITROGEN 2 MG/DL (7-18); BUN/CREATININE RATIO 3.8 (10.0-20.0); CALCIUM 8.3 MG/DL (8.5-10.1); CHLORIDE 93 MMOL/L (99-107); CREATININE 0.52 MG/DL (0.40-0.90); GLUCOSE 127 MG/DL (70-104); MAGNESIUM 1.3 MG/DL (1.5-2.4); SODIUM 140 MMOL/L (135-145); TOTAL PROTEIN 6.4 G/DL (6.4-8.2); eCRCL 50 ML/MIN; eGFR > 90 ML/MIN
[2025-01-27 12:54] LABS: TOTAL CARBON DIOXIDE 43.6 MMOL/L (24-32)
[2025-01-27] MEDS ORDERED: potassium Cl 20 mEq SR tablet PO PRN (13:25)
[2025-01-27] MEDS ORDERED: potassium Cl 40MEQ/1/2NS 520ml 520 ML IV PRN (13:25)
[2025-01-27] MEDS ORDERED: magnesium sulf-water 2g/50mL 50 ML IV PRN (13:25)
[2025-01-27] MEDS ORDERED: magnesium sulf-water 4G/100mL 100 ML IV PRN (13:25)
[2025-01-27] MEDS: magnesium Cl slow-release 64mg tablet PO PRN (13:59)
[2025-01-27] MEDS: potassium Cl 20 mEq SR tablet PO PRN (13:59)
[2025-01-27] MEDS: metoclopramide 5 mg/ml inj IV SCH (14:00)
[2025-01-27] MEDS ORDERED: POTASSIUM CHLORIDE 20 MEQ/15 ML oral solution PO PRN (15:39)
[2025-01-27] MEDS: dextrose 5%-water 1,000 ML IV SCH (16:35)
[2025-01-27] MEDS: NUT.TX.IMPAIRED DIGEST FXN (Ensure Clear) 237 ML PO SCH (18:00)
[2025-01-27] MEDS: POTASSIUM CHLORIDE 20 MEQ/15 ML oral solution PO PRN (19:36)
[2025-01-27] MEDS: K and/or MAG REPLACEMENT MC SCH (20:06)
[2025-01-27] MEDS ORDERED: Melatonin 3mg tablet PO SCH (21:00)
[2025-01-28] VITALS (8 sets, daily range): BP systolic 99–114; BP diastolic 53–73; PULSE 101–118; RESP 14–20; TEMP 97.8–98.6; O2SAT 92–97
[2025-01-28 06:11] LABS: BASOPHILS % (AUTO) 0.4 % (0-1); EOSINOPHILS # (AUTO) 0.1 X10'3 (0-0.9); EOSINOPHILS % (AUTO) 1.9 % (0-6); HEMATOCRIT 35.8 % (35.0-45.0); HEMOGLOBIN 12.6 g/dl (12.0-16.0); LYMPHOCYTES # (AUTO) 1.7 X10'3 (1.1-4.8); LYMPHOCYTES % (AUTO) 23.2 % (21-51); MEAN CORPUSCULAR HGB CONC 35.2 g/dL (33.0-36.5); MEAN CORPUSCULAR VOLUME 90.7 FL (78-98); MEAN PLATELET VOLUME 6.9 FL (7.4-10.4); MONOCYTES # (AUTO) 1.1 X10'3 (0-0.9); NEUTROPHILS # (AUTO) 4.3 X10'3 (1.8-7.7); NEUTROPHILS % (AUTO) 59.5 % (42-75); PLATELET COUNT 309 X10'3 (140-440); RED BLOOD COUNT 3.94 X10'6 (4.20-5.60); RED CELL DISTRIBUTION WIDTH 12.2 % (11.5-14.5); WHITE BLOOD COUNT 7.2 X10'3 (4.5-11.0)
[2025-01-28 06:39] LABS: ALANINE AMINOTRANSFERASE 36 U/L (12-78); ALBUMIN/GLOBULIN RATIO 0.8 (1.1-1.5); ALKALINE PHOSPHATASE 33 IU/L (46-116); ANION GAP 8 (8-16); ASPARTATE AMINO TRANSFERASE 58 U/L (10-37); BILIRUBIN,TOTAL 0.4 MG/DL (0.1-1.0); BLOOD UREA NITROGEN 2 MG/DL (7-18); BUN/CREATININE RATIO 3.8 (10.0-20.0); CALCIUM 8.6 MG/DL (8.5-10.1); CHLORIDE 98 MMOL/L (99-107); CREATININE 0.53 MG/DL (0.40-0.90); GLUCOSE 169 MG/DL (70-104); SODIUM 140 MMOL/L (135-145); TOTAL CARBON DIOXIDE 33.6 MMOL/L (24-32); TOTAL PROTEIN 6.7 G/DL (6.4-8.2); eCRCL 50 ML/MIN; eGFR > 90 ML/MIN
[2025-01-28 06:46] LABS: POTASSIUM 2.8 MMOL/L (3.5-5.1)
--- NOTE | 2025-01-28 12:02 | PROGRESS NOTE- Residence ---
Progress Note - Resident Providers to CC Resident Creating Document: YEYO SCHULTZ, RES ~ Antibiotic Timeout Antibiotic Ordered?: Yes Subjective The patient was seen and examined at bedside today. Patient denies any pain, has good bowel sounds and is passing gas but has not had a bowel movement yet. Patient's daughter was at the bedside who was encouraging her to drink more ensure. Patient's potassium has improved but is still low. We will continue telemetry monitoring and keep replacing the potassium through NG-tube. Patient needs physical therapy evaluation today, she uses a walker to ambulate at home. Code status will be changed to DNR per patient request. Objective Vital Signs Date Time Temp Pulse Resp B/P (MAP) Pulse Ox O2 Delivery O2 Flow Rate FiO2 01/28/25 07:49 109 20 97 Room Air* 0 21 01/28/25 06:00 98.0 100/60 (73) Result Diagram: 01/28/258 01/28/258 General: Elderly frail thin-appearing female, alert and oriented x4, not in acute distress. Deconditioned, in mild acute distress Head: Normocephalic with an atraumatic Eyes: Pupils- 3mm, reacting to light, conjunctiva- anicteric Nose and throat: No polyps, septum- normal, no mucosal ulcers Neck: Supple, no lymphadenopathy, no carotid bruit Respiratory: No use of accessory muscles of respiration, Bilateral normal vesiscular breath sounds heard. No wheeze, rhochi or creps Cardiovascular system: S1-S2 heard, rhythm regular, no gallop/murmur Gastrointestinal: Soft over the right side of abdomen. Firm in consistency over the left upper and lower quadrants. non distended, tenderness in the left lower quadrant, no organomegaly, bowel sounds - heard hyper active. No guarding, rigidity Extremities: no clubbing, no pedal edema, no deformities, peripheral pulses - 2+. Skin: warm and dry, no rash, no purpura,decreased turgor Neuro: No focal deficit, gross cranial nerve exam - normal Coagulation Studies Laboratory Tests Test 01/23/25 20:20 Prothrombin Time 10.3 SECONDS (9.0-12.0) INR International Normalized Ratio 1.0 INR Activated Partial Thromboplast Time 26 SECONDS (22-32) Coagulation Comments Assessment Assessment 85-year-old female(very poor historian) with past medical history of COPD, hard hearing, remote history of bowel obstruction status post resection presented to the ER with abdominal pain, vomiting. She endorses that pain abdomen, 6-7/10, in lower abdomen, spasmodic for the past four days. She initially had multiple episodes of diarrhea on Tuesday night and she took Imodium. On Tuesday her diarrhea improved but then she developed vomiting for the past four days. She reports nausea, multiple episodes of vomiting, with a light green liquid, more than 8-10 episodes& without any hematemesis for the past four days. She has been unable to hold down any food since then she developed abdominal pain. She do reports back pain and shoulder pain and chest pain, non anginal, burning type retrosternal for the past 2 days. Denied shortness of breath, wheezing, palpitations, fever, cough, constipation, abdominal distention, pedal edema. Her last bowel movement is on 01/23/2025. Her next in kin is KajalBárbara Discussed code status with the patient and patient wants to be in full code. Plan Plan Partial Small-bowel obstruction likely secondary to postop adhesions, improving Bowel sounds present. CT with contrast shows partial small-bowel obstruction. Patient is passing flatus. NG-tube clamped Confirmed with Dr. Romero and started the patient on mineral oil enema and clear liquid diet. Awaiting recommendations to advance diet. We will continue to monitor. Continue IV ceftriaxone and metronidazole, IV fluids. Metabolic alkalosis, improving Severe hypokalemia Bicarbonate greater than 40 Changed fluids from bicarbonate to D5 water. Potassium was two yesterday, improved to 2.8 today. Continue replacing potassium and telemetry monitoring. Acute urinary retention Continue Vega's catheterization. Patient needs outpatient urology follow up Mild normocytic normochromic anemia Severe protein calorie malnutrition Continue to monitor H&H daily. Ensure t.i.d. Code status: Full code DVT prophylaxis: SCDs Diet: Clear liquids PT: Pending evaluation Prognosis: Guarded Disposition: Continue care in ortho floor. Needs PT. Mineral oil enema and liquid diet today. Diet Recommendations per surgeon Yeyo Mortensen MD Internal Medicine Resident, PGY-1 Patient is seen and examined with resident at bedside we will advanced diet as tolerated Date of Service: Jan 28, 2025 Billing Provider: LYUDMILA HUGHES MD Common Visit Codes: [id number] INP/OBS CARE(HIGH) SCHULTZ,YEYO ANNE, RES Jan 28, 2025 12:02 LYUDMILA HUGHES MD Jan 29, 2025 08:36
[2025-01-28 12:44] LABS: ALANINE AMINOTRANSFERASE 41 U/L (12-78); ALBUMIN/GLOBULIN RATIO 0.8 (1.1-1.5); ALKALINE PHOSPHATASE 34 IU/L (46-116); ANION GAP 6 (8-16); ASPARTATE AMINO TRANSFERASE 53 U/L (10-37); BILIRUBIN,TOTAL 0.4 MG/DL (0.1-1.0); BLOOD UREA NITROGEN 3 MG/DL (7-18); BUN/CREATININE RATIO 5.2 (10.0-20.0); CALCIUM 8.6 MG/DL (8.5-10.1); CHLORIDE 97 MMOL/L (99-107); CREATININE 0.58 MG/DL (0.40-0.90); GLUCOSE 168 MG/DL (70-104); POTASSIUM 3.5 MMOL/L (3.5-5.1); SODIUM 137 MMOL/L (135-145); TOTAL CARBON DIOXIDE 34.2 MMOL/L (24-32); TOTAL PROTEIN 6.7 G/DL (6.4-8.2); eCRCL 45 ML/MIN; eGFR > 90 ML/MIN
[2025-01-28 14:42] LABS: MAGNESIUM 1.5 MG/DL (1.5-2.4)
[2025-01-28] MEDS: lactose-reduced food (Ensure Enlive) - 237ml bottle PO SCH (20:06)
[2025-01-29 06:00] VITALS: BP 104/68; PULSE 102; RESP 14; TEMP 96.7; O2SAT 99
[2025-01-29 08:05] VITALS: RESP 18
[2025-01-29 08:09] VITALS: PULSE 110; RESP 16; O2SAT 96
[2025-01-29 10:00] VITALS: BP 92/60; PULSE 103; RESP 15; TEMP 98.1; O2SAT 93
[2025-01-29] MEDS ORDERED: METO-292 PO (11:19)
--- NOTE | 2025-01-29 11:37 | DISCHARGE SUMMARY-Residence ---
Discharge Summary Providers to CC Resident Creating Document: YEYO SCHULTZ ANNE, KESHAV ~ Discharge Summary Admission Diagnosis: SMALL BOWEL OBSTRUCTION Hospital Course DATE OF ADMISSION: 01/23/2025 DATE OF DISCHARGE: 01/29/2025 Discharge Diagnosis\Comment: Partial Small-bowel obstruction likely secondary to postop adhesions, improving Metabolic alkalosis, improving Severe hypokalemia, resolved Acute urinary retention Mild normocytic normochromic anemia Severe protein calorie malnutrition Operations\Procedures: None Consultants: Dr. Romero Complications: None Condition on DC: Stable New Medications: Metoclopramide HCl (Reglan) 10 Mg Tablet 1 TAB PO Q8H for 5 Days, #15 TAB 0 Refills before food and bedtime Continued Medications: Lansoprazole (Lansoprazole) 30 Mg Capsule.dr 1 CAP PO DAILY Tiotropium Br/Olodaterol HCl (Stiolto Respimat Inhal Onset) 2.5 Mcg-2.5 Mcg/Actuation Mist.inhal 2 PUFFS INH DAILY Discharge Summary: 85-year-old female(very poor historian) with past medical history of COPD, hard hearing, remote history of bowel obstruction status post resection presented to the ER with abdominal pain, vomiting. She endorses that pain abdomen, 6-7/10, in lower abdomen, spasmodic for the past four days. She initially had multiple episodes of diarrhea on Tuesday night and she took Imodium. On Tuesday her diarrhea improved but then she developed vomiting for the past four days. She reports nausea, multiple episodes of vomiting, with a light green liquid, more than 8-10 episodes& without any hematemesis for the past four days. She has been unable to hold down any food since then she developed abdominal pain. She do reports back pain and shoulder pain and chest pain, non anginal, burning type retrosternal for the past 2 days. Denied shortness of breath, wheezing, palpitations, fever, cough, constipation, abdominal distention, pedal edema. Her last bowel movement is on 01/23/2025. Her next in kin is [facility] course: Partial Small-bowel obstruction likely secondary to postop adhesions, improving. Bowel sounds present. CT with contrast shows partial small-bowel obstruction. Patient is passing flatus. NG-tube that was placed at admission was clamped later and removed. .Confirmed with Dr. Romero and started the patient on mineral oil enema and clear liquid diet and advance diet as tolerated. Received IV ceftriaxone and metronidazole, IV fluids. Severe hypokalemia treated with potassium replacement. Acute urinary retention. Continue Vega's catheterization. Patient needs outpatient urology follow up. Mild normocytic normochromic anemia. Severe protein calorie malnutrition. Ensure t.i.d. Physical examination at discharge: General: Elderly frail thin-appearing female, alert and oriented x4, not in acute distress. Deconditioned, in mild acute distress Head: Normocephalic with an atraumatic Eyes: Pupils- 3mm, reacting to light, conjunctiva- anicteric Nose and throat: No polyps, septum- normal, no mucosal ulcers Neck: Supple, no lymphadenopathy, no carotid bruit Respiratory: No use of accessory muscles of respiration, Bilateral normal vesiscular breath sounds heard. No wheeze, rhochi or creps Cardiovascular system: S1-S2 heard, rhythm regular, no gallop/murmur Gastrointestinal: Soft nontender non distended,no organomegaly, bowel sounds - present. No guarding, rigidity Extremities: no clubbing, no pedal edema, no deformities, peripheral pulses - 2+. Skin: warm and dry, no rash, no purpura,decreased turgor Neuro: No focal deficit, gross cranial nerve exam - normal Vital Signs Date Time Temp Pulse Resp B/P (MAP) Pulse Ox O2 Delivery O2 Flow Rate FiO2 01/29/25 08:09 110 16 96 Room Air* 0 21 01/29/25 06:00 96.7 104/68 (80) Laboratory Tests Test 01/27/25 11:59 01/28/25 04:48 01/28/25 12:15 White Blood Count 7.1 X10'3 7.2 X10'3 Red Blood Count 3.73 X10'6 3.94 X10'6 Hemoglobin 11.7 g/dl 12.6 g/dl Hematocrit 33.8 % 35.8 % Mean Corpuscular Volume 90.5 FL 90.7 FL Mean Corpuscular Hemoglobin 31.5 PG 32.0 PG Mean Corpuscular Hemoglobin Concent 34.8 g/dL 35.2 g/dL Red Cell Distribution Width 11.8 % 12.2 % Platelet Count 296 X10'3 309 X10'3 Mean Platelet Volume 6.3 FL 6.9 FL Neutrophils (%) (Auto) 67.7 % 59.5 % Lymphocytes (%) (Auto) 19.5 % 23.2 % Monocytes (%) (Auto) 10.8 % 15.0 % Eosinophils (%) (Auto) 1.2 % 1.9 % Basophils (%) (Auto) 0.8 % 0.4 % Neutrophils # (Auto) 4.8 X10'3 4.3 X10'3 Lymphocytes # (Auto) 1.4 X10'3 1.7 X10'3 Monocytes # (Auto) 0.8 X10'3 1.1 X10'3 Eosinophils # (Auto) 0.1 X10'3 0.1 X10'3 Basophils # (Auto) 0.1 X10'3 0.0 X10'3 CBC Comment Sodium Level 140 MMOL/L 140 MMOL/L 137 MMOL/L Potassium Level 2.0 MMOL/L 2.8 MMOL/L 3.5 MMOL/L Chloride Level 93 MMOL/L 98 MMOL/L 97 MMOL/L Carbon Dioxide Level 43.6 MMOL/L 33.6 MMOL/L 34.2 MMOL/L Anion Gap 3 8 6 Blood Urea Nitrogen 2 MG/DL 2 MG/DL 3 MG/DL Creatinine 0.52 MG/DL 0.53 MG/DL 0.58 MG/DL Estimated GFR/1.73 m2 > 90 ML/MIN > 90 ML/MIN > 90 ML/MIN BUN/Creatinine Ratio 3.8 3.8 5.2 Glucose Level 127 MG/DL 169 MG/DL 168 MG/DL Calcium Level 8.3 MG/DL 8.6 MG/DL 8.6 MG/DL Magnesium Level 1.3 MG/DL 1.5 MG/DL Total Bilirubin 0.6 MG/DL 0.4 MG/DL 0.4 MG/DL Aspartate Amino Transf (AST/SGOT) 56 U/L 58 U/L 53 U/L Alanine Aminotransferase (ALT/SGPT) 35 U/L 36 U/L 41 U/L Alkaline Phosphatase 36 IU/L 33 IU/L 34 IU/L Total Protein 6.4 G/DL 6.7 G/DL 6.7 G/DL Albumin 2.9 G/DL 3.0 G/DL 3.0 G/DL Globulin 3.5 G/DL 3.7 G/DL 3.7 G/DL Albumin/Globulin Ratio 0.8 0[address] abdomen: 1. Small-bowel obstruction with probable transition point in the lower midline abdomen. 2. Markedly distended bladder. Correlate for urinary retention CT abdomen pelvis with contrast: 1. Moderate distention small bowel loops , overall less pronounced than on prior examination. Contrast appears to reach the splenic flexure of the colon. These findings could represent partial small bowel obstruction, overall improved since previous examination. 2. Interval development of mesenteric edema and small amount of ascites fluid. 3. Moderate right and small left pleural effusions. 4. Cholelithiasis. 5. Vicarious excretion contrast from the gallbladder suggesting renal dysfunction. 6. Severe bladder distention. 7. Rectal/anal wall thickening. Recommend GI consultation to evaluate. Echocardiogram: Normal LV size and wall thickness. Overall systolic function is normal. LVEF is 65-70%. RV not fully evaluated due to early termination of exam. The left atrium size is normal. Trileaflet AV appears mildly sclerotic with insufficiency. AV not fully evaluated due to early termination of exam. Mitral valve leaflets are thickened with mild annular calcification. No sst enosis. Trace regurgitation. Tricuspid valve is grossly normal in structure with mild regurgitation. Normal pericardium. No effusion. Discharge instructions: Follow up with your PCP and surgeon in a week. We have prescribed a medication to help with your bowel movement. Take them as prescribed. Home health nurse will come visit and address any concerns that you have. Advice protein rich diet and weight gain. Return to the ED if you have worsening abdominal pain/distention *Problems/Diagnosis: (1) Abdominal pain Status: Acute Total Time Spent on D/C: > 30 Minutes Date of Service: Jan 29, 2025 Billing Provider: LYUDMILA HUGHES MD Common Visit Codes: 25287-KDU/OBS DISCH DAY >30min Problem Qualifiers (1) Abdominal pain: Abdominal location: left lower quadrant Qualified Codes: R10.32 - Left lower quadrant pain SCHULTZYEYO MUNOZ, RES Jan 29, 2025 11:37 LYUDMILA HUGHES MD Jan 30, 2025 11:58
[2025-01-29] MEDS ORDERED: DOCU100C40 PO (14:16)
== END 2025-01-29 13:50 | disposition home health service (06) | DRG 388 ==
LOC: ER 14:29 → ED HOLD 19:20 → ORTHO 4S 23:50
PROVIDERS: ADMIT Internal Medicine Critical Care Medicine; ATTEND Internal Medicine Critical Care Medicine
PROC: 0D9670Z Drainage of Stomach with Drainage Device, Via Natural or Artificial Opening (ICD-10-PCS; principal; 2025-01-23)
PROC: BW211ZZ Computerized Tomography (CT Scan) of Abdomen and Pelvis using Low Osmolar Contrast (ICD-10-PCS; 2025-01-23)
DX: K91.31 Postprocedural partial intestinal obstruction (principal); E43 Unspecified severe protein-calorie malnutrition; E87.3 Alkalosis; Z68.1 Body mass index [BMI] 19.9 or less, adult; J44.9 Chronic obstructive pulmonary disease, unspecified; E87.6 Hypokalemia; Y83.8 Other surgical procedures as the cause of abnormal reaction of the patient, or of later complication, without mention of misadventure at the time of the procedure; D64.9 Anemia, unspecified; R33.8 Other retention of urine; Z87.891 Personal history of nicotine dependence; Z90.710 Acquired absence of both cervix and uterus; Y92.89 Other specified places as the place of occurrence of the external cause
CPT/HCPCS: 36415; 43752; 71045; 74176; 74177; 80053; 81001; 81025; 83605; 83690; 83735; 84145; 85007; 85025; 85610; 85730; 86885; 86900; 86901; 87081; 87088; 92508; 93308; 94640; 94760; 96361; 96374; 96375; 97161; 97530; 97535; 99285; A4314; A4353; A4615; A5200; A6213; C1758; G0378; J0696; J1171; J2270; J2405; J2470; J2765; J3490; J7030; J7040; J7042; J7070; J7120; J7121; Q9963; Q9967